=== PATIENT | male | born 1970 | race Hispanic/Latino ===

== ENCOUNTER → 2016-03-20 | Outpatient (CLI) | payer OTHER ==
[~2016-03-20] MED LIST: /ACETCOD2T PO; AMIT25TA10 PO; BACL10TA2 PO; BUSP10TA PO; CLON-412 PO; DIAM500C PO; GABA300C2 PO; GABA400C PO; GABA600T PO; HYDR-3719 PO; HYDR10TA16 PO; LIDOCAINE 1% MDV 20ML VIAL As Ordered ONE; LIDOCAINE 1% SDV INJ 30 ML VIAL As Ordered ONE; LISI20TA PO; LISI5TAB PO; MIDAZOLAM INJ 2 MG/2 ML VIAL (J2250) As Ordered ONE; MOBI15TA PO; OMEP40CA2 PO; PRAZ2CAP PO; SOMA250T PO; TRAM50TA2 PO; ZOLO100T PO; fentaNYL 100 MCG/2 ML INJECTION (J3010) As Ordered ONE
[2016-03-20 17:33] LABS: GLUCOSE CSF 59 MG/DL (40-75)
[2016-03-20 17:44] LABS: RBC CSF AUTO 1 /mm3 (0-0); WBC CSF AUTO 0 /mm3 (0-10)
[2016-03-20 17:45] LABS: APPEARANCE, CSF CLEAR (CLEAR); COLOR, CSF COLORLESS (COLORLESS); CSF DIFF IF INDICATED? NO (NO); CSF TUBE# CELL CNT TUBE 3
[2016-03-20 17:46] LABS: CSF DILUENT LOT # 6053
--- NOTE | 2016-03-22 23:24 | ECWPNPC ---
PATIENT NAME: OZZY ELDRIDGE : 1970 GENDER: MALE VISIT DATE: 03/20/2016 DISCHARGE DATE: 03/20/16826 VISIT LOCKED DATE TIME: PHYSICIAN: CLAUDETTE STODDARD RESOURCE: CLAUDETTE STODDARD REASON FOR APPOINTMENT 1. PSEUDOTUMOR CEREBRI SPINAL TAP CURRENT MEDICATIONS TAKING HYDROCHLOROTHIAZIDE 25 MG TABLET 1 TABLET ORALLY ONCE A DAY TAKING LOSARTAN POTASSIUM 25 MG TABLET 1 TABLET ORALLY ONCE A DAY TAKING TRAMADOL HCL 50 MG TABLET 1 TABLET ORALLY EVERY 4 HOURS PRN PAIN MDD=6 TAKING NORCO 5-325 MG TABLET 1 TABLET ORALLY EVERY 8-12 HRS MDD=2 PAST MEDICAL HISTORY HIGH BLOOD PRESSURE FLUID ON BRAIN PRESSURE BEHIND BOTH EYES WORSE ON THE LEFT ALLERGIES IBUPROFEN PENICILLIN (FOR ALLERGIES USE ONLY) SHELLFISH: ANAPHYLAXIS ASSESSMENTS PSEUDOTUMOR CEREBRI. TREATMENT OTHERS NOTES: SPINAL TAP WITH IV SEDATION - PLEASE SEE [email or web address]. PROCEDURE CODES 48943 MOD SED SAME PHYS/QHP 5/>YRS FOLLOW UP F/UP WITH NEUROLOGIST/CALL NEEDED ELECTRONICALLY SIGNED BY CLAUDETTE STODDARD MD ON 03/22/2016 AT 10:17 PM EST DISCLAIMER : THIS IS A VISIT SUMMARY EXTRACTED FROM THE [employer] technology CHART. IT IS NOT A COPY OF THE [employer] PROGRESS NOTE. ANIKET
== END ==
LOC: M PAIN 14:00
PROVIDERS: ATTEND Anesthesiology
DX: G93.2 Benign intracranial hypertension (principal); R51 Headache; Z79.891 Long term (current) use of opiate analgesic; Z79.899 Other long term (current) drug therapy; Z88.0 Allergy status to penicillin; Z88.6 Allergy status to analgesic agent; Z91.013 Allergy to seafood
CPT/HCPCS: 62270; 82945; 84157; 87015; 87070; 87205; 89050; 99152; J2250; J3010

== ENCOUNTER → 2021-10-27 | Outpatient (CLI) | payer OTHER ==
[~2021-10-27] MED LIST changes: -/ACETCOD2T PO; +ACET1TAB15 PO; -GABA600T PO; +GABA600T4 PO; -LIDOCAINE 1% MDV 20ML VIAL As Ordered ONE; -LIDOCAINE 1% SDV INJ 30 ML VIAL As Ordered ONE; -MIDAZOLAM INJ 2 MG/2 ML VIAL (J2250) As Ordered ONE; -OMEP40CA2 PO; +OMEP40CA4 PO; -fentaNYL 100 MCG/2 ML INJECTION (J3010) As Ordered ONE
== END ==
LOC: M RAD 11:14
PROVIDERS: ATTEND Psychiatry & Neurology Neurology
DX: G93.2 Benign intracranial hypertension (principal); H47.11 Papilledema associated with increased intracranial pressure; Z98.2 Presence of cerebrospinal fluid drainage device

== ENCOUNTER → 2021-11-10 | Outpatient (CLI) | payer OTHER ==
[2021-11-10 11:20] LABS: INR 0.93; PROTHROMBIN TIME 12.9 SECONDS (12.7-14.5)
== END ==
LOC: M LAB 09:20
PROVIDERS: ATTEND Psychiatry & Neurology Neurology
DX: I10 Essential (primary) hypertension (principal)

== ENCOUNTER → 2021-11-17 | Outpatient (CLI) | payer OTHER ==
[2021-11-17 11:14] VITALS: BP 174/80
[2021-11-17 11:58] LABS: APPEARANCE, CSF CLEAR (CLEAR); COLOR, CSF COLORLESS (COLORLESS); CSF TUBE# CELL CNT TUBE 1
[2021-11-17 12:54] LABS: CSF TUBE# GLU TUBE 1; CSF TUBE# TP TUBE 1; GLUCOSE CSF 61 MG/DL (40-75); TOTAL PROTEIN,CSF 109 MG/DL (15-45)
== END ==
LOC: M IRPRO 08:24
PROVIDERS: ATTEND Psychiatry & Neurology Neurology
DX: H47.10 Unspecified papilledema (principal)

== ENCOUNTER → 2021-11-17 | Outpatient (REF) | payer OTHER ==
[2021-11-17 12:02] LABS: BASO # 0.1 10^3/uL (0.0-0.2); BASO % 0.5 % (0.0-1.0); EOS # 0.1 10^3/uL (0.0-0.5); EOS % 0.8 % (0.0-3.0); HEMATOCRIT 45.5 % (42.0-52.0); HEMOGLOBIN 14.4 g/dl (13.5-17.5); LYMPH # 2.8 10^3/uL (1.5-5.0); LYMPH % 25.4 % (24.0-44.0); MEAN CORPUSCULAR HEMOGLOBIN 27.3 pg (27.0-33.0); MEAN CORPUSCULAR HGB CONC 31.6 g/dl (32.0-36.5); MEAN CORPUSCULAR VOLUME 86.2 fl (80.0-96.0); MONO % 8.8 % (2.0-8.0); NEUTROPHILS # 7.1 10^3/uL (1.5-8.5); NEUTROPHILS % 63.9 % (36.0-66.0); PLATELET COUNT, AUTOMATED 228 10^3/uL (150-450); RED BLOOD COUNT 5.28 10^6/uL (4.30-6.10); WHITE BLOOD COUNT 11.1 10^3/uL (4.0-10.0)
== END ==
LOC: M LAB REF 10:46
PROVIDERS: ATTEND Psychiatry & Neurology Neurology
DX: I10 Essential (primary) hypertension (principal)